=== PATIENT | male | born 1955 | race Caucasian/White ===

== ENCOUNTER → 2020-06-27 09:53 | Outpatient (CLI) | payer OTHER, SELFPAY ==
[2020-06-27] MEDS: COVID-19 VACC #1, MRNA(MOD) 100 MCG/0.5 ML VIAL IM (09:59)
== END ==
PROVIDERS: Visit Provider Internal Medicine
DX: Z23 Encounter for immunization (principal)
CPT/HCPCS: 0011A; 91301

== ENCOUNTER → 2020-07-25 10:31 | Outpatient (CLI) | payer OTHER, SELFPAY ==
[2020-07-25] MEDS: COVID-19 VACC #2, MRNA(MOD) 100 MCG/0.5 ML VIAL IM (10:39)
== END ==
PROVIDERS: Visit Provider Internal Medicine
DX: Z23 Encounter for immunization (principal)
CPT/HCPCS: 0012A; 91301